=== PATIENT | male | born 1975 | race Caucasian/White ===

== ENCOUNTER 2019-06-25 12:43 | Emergency (ER) | payer OTHER ==
[2019-06-25 13:09] VITALS: TEMP 97.9
[2019-06-25] MEDS ORDERED: HYDROcodone/APAP 5-325MG 1 EACH TAB PO STA (13:41)
--- NOTE | 2019-06-25 13:52 | ED ---
Lower Extremity Injury HPI - General Chief Complaint: Extremity Injury, Lower Stated Complaint: ankle pain Time Seen by Provider: 06/25/19 13:25 Source: patient, RN notes reviewed Mode of arrival: wheelchair Limitations: no limitations - History of Present Illness Initial Comments: 43-year-old male presents emergency Department chief of any ankle injury. Patient states that he felt a skateboard yesterday. Patient states he has extensive ankle swelling, bruising and pain by his knee. Patient denies any head injury no loss conscious. He's had no prior fractures. He states cannot ambulate secondary to pain and swelling. Patient denies any paresthesias. - Related Data Allergies Allergy/AdvReac Type Severity Reaction Status Date / Time No Known Allergies Allergy Verified 06/25/19 13:09 Review of Systems ROS Statement: Those systems with pertinent positive or pertinent negative responses have been documented in the HPI. ROS Other: All systems not noted in ROS Statement are negative. Past Medical History Past Medical History: No Reported History History of Any Multi-Drug Resistant Organisms: None Reported Additional Past Surgical History / Comment(s): testicle removed Past Psychological History: Bipolar Smoking Status: Never smoker Past Alcohol Use History: Occasional Past Drug Use History: Marijuana General Exam Limitations: no limitations General appearance: alert, in no apparent distress Head exam: Present: atraumatic, normocephalic, normal inspection Neck exam: Present: normal inspection, full ROM. Absent: tenderness, meningismus, lymphadenopathy Respiratory exam: Present: normal lung sounds bilaterally. Absent: respiratory distress, wheezes, rales, rhonchi, stridor Cardiovascular Exam: Present: regular rate, normal rhythm, normal heart sounds. Absent: systolic murmur, diastolic murmur, rubs, gallop, clicks Extremities exam: Present: other (Right ankle there is moderate swelling, ecchymosis and tenderness on the medial aspect no foot tenderness neurovascular intact there is no proximal tib-fib tenderness noted) Back exam: Absent: CVA tenderness (R), CVA tenderness (L) Neurological exam: Present: alert, oriented X3, CN II-XII intact Skin exam: Present: warm, dry, intact, normal color. Absent: rash Course Vital Signs 06/25/19 13:04 Temperature 97.9 F Pulse Rate 91 Respiratory 20 Rate Blood Pressure 135/86 O2 Sat by Pulse 98 Oximetry Procedures - Orthopedic Splinting/Casting Injury #1 Side: right Lower Extremity Injury Location: short leg, ankle Lower Extremity Immobilizer: posterior splint, synthetic pre-padded splint Other Orthopedic Equipment: crutches Medical Decision Making - Medical Decision Making X-ray of the tib-fib shows proximal fibular fracture, most likely ligamentous injury to the ankle as a slight disruption. Patient was placed in a short-leg splint will follow-up with orthopedics. Patient provided crutches and pain medication Disposition Clinical Impression: Fracture of proximal end of right fibula, Disorder of ligament, right ankle Disposition: HOME SELF-CARE Condition: Stable Instructions (If sedation given, give patient instructions): Ankle Sprain (ED), Leg Fracture (ED) Additional Instructions: Please return to the Emergency Department if symptoms worsen or any other concerns. Is patient prescribed a controlled substance at d/c from ED?: No Referrals: Nonstaff,Physician [Primary Care Provider] - 1-2 days René Moncada DO [Doctor of Osteopathic Medicine] - 1-2 days Time of Disposition: 14:45
--- NOTE | 2019-06-25 14:31 | XR ---
Right leg and right ankle HISTORY: Pain and swelling Frontal lateral views of the right leg submitted on 4 images. 3 views of the right ankle. There is an oblique fracture of the proximal right fibula with minimal displacement. No dislocation. There is a plantar calcaneal spur. Soft tissue swelling is present, some suspected widening at the [place] of the medial malleolus and ankle mortise. IMPRESSION: Proximal right fibular fracture, likely there is ligamentous disruption within the right ankle.
[2019-06-25] MEDS ORDERED: ACET/COD 300 MG/30 MG STARTER PACK 6 TAB BTL PO STA (14:45)
[2019-06-25 15:04] VITALS: BP 130/88; PULSE 89; RESP 16
== END 2019-06-25 15:04 | disposition home or self-care (01) ==
LOC: EC 12:43
DX: S82.831A Other fracture of upper and lower end of right fibula, initial encounter for closed fracture (principal); M24.271 Disorder of ligament, right ankle; V00.131A Fall from skateboard, initial encounter; Y93.51 Activity, roller skating (inline) and skateboarding; Y92.331 Roller skating rink as the place of occurrence of the external cause
CPT/HCPCS: 29515; 99283

== ENCOUNTER → 2019-06-26 | Outpatient (CLI) | payer OTHER ==
[2019-06-26 14:18] LABS: Basophils % (A) 0 %; Eosinophils # (A) 0.1 k/uL (0-0.7); Eosinophils % (A) 1 %; HCT 46.4 % (39.0-53.0); HGB 15.4 gm/dL (13.0-17.5); Lymphocytes # (A) 2.6 k/uL (1.0-4.8); Lymphocytes % (A) 29 %; MCH 30.8 pg (25.0-35.0); MCHC 33.2 g/dL (31.0-37.0); Monocytes # (A) 0.4 k/uL (0-1.0); Monocytes % (A) 5 %; Neutrophils # (A) 5.7 k/uL (1.3-7.7); Neutrophils % (A) 63 %; Platelet Count 128 k/uL (150-450); RBC 4.99 m/uL (4.30-5.90); RDW 12.8 % (11.5-15.5)
== END | disposition home or self-care (01) ==
LOC: LABPAT 12:40
PROVIDERS: ATTEND Orthopaedic Surgery
DX: Z01.818 Encounter for other preprocedural examination (principal); S93.431D Sprain of tibiofibular ligament of right ankle, subsequent encounter
CPT/HCPCS: 36415; 85025